=== PATIENT | female | born 1985 | race Caucasian/White ===

== ENCOUNTER 2019-02-02 12:32 | Inpatient (IN) | payer MEDICAID ==
[2019-02-02] MEDS ORDERED: STADOL IV PRN (12:38)
[2019-02-02] MEDS ORDERED: ZOFRAN IV PRN (12:38)
[2019-02-02] MEDS ORDERED: BRETHINE IVP PRN (12:38)
[2019-02-02] MEDS ORDERED: MINERAL OIL PO PRN (12:38)
[2019-02-02] MEDS ORDERED: SUBLIMAZE IV PRN (12:38)
[2019-02-02] MEDS ORDERED: XYLOCAINE 2% INFILTRATI ONE (12:38)
[2019-02-02] MEDS ORDERED: BRETHINE SUB-Q PRN (12:38)
[2019-02-02] MEDS ORDERED: LACTATED RINGERS 1,000 ML IV SCH (13:00)
[2019-02-02] MEDS ORDERED: PITOCin/NS 20 UNIT/1000ML DRIP 20 UNITS/1,000 ML BAG IV SCH (13:00)
[2019-02-02] MEDS ORDERED: PITOCin/NS 30 UNIT/500ML 30 UNITS/500 ML BAG IV SCH ×2 (13:00→14:00)
--- NOTE | 2019-02-02 13:10 | History and Physical Report ---
History of Present Illness Date of examination: 02/02/19 (sent from office in active labor) Date of admission: 02/02/19 12:32 History of present illness: EDC Confirmation: 02/01/2019 Gestational Age: 14 6/7 weeks Past History : 5 Term Births: 3 Premature Births: 0 Living Children: 3 Para: 3 Mult. Births: 0 Prev : 0 Aborta: 1 Elect. Ab: 0 Spont. Ab: 1 Ectopics: 0 # 1 Delivery date: 07/13/2004 Weeks Gestation: 40 labor: no Delivery type: Hours of labor: 12 Anesthesia type: epidural Delivery location: [facility] Infant Sex: Male weight: 7-? Name: Francisco # 2 Delivery date: 02/02/2009 Weeks Gestation: 40 labor: no Delivery type: Hours of labor: 7 Anesthesia type: epidural Delivery location: [facility] Sex: Male weight: 8-0 Name: Low # 3 Delivery date: 2013 Weeks Gestation: 8 Delivery type: SAB Comments: No D&C # 4 Delivery date: 12/27/2015 Weeks Gestation: 38 labor: no Delivery type: Hours of labor: 10 Delivery location: [facility] Infant Sex: Female weight: 6-? 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 of genital herpes: no Genetic History Congenital Heart Defect: Mom: no Dad: no Quang Disease: Mom: no Dad: no Thalassemia Mom: no Dad: no Neural Tube Defect Mom: no Dad: no Down's Syndrome Mom: no Dad: no Marv-Sachs Mom: no Dad: no Sickle Cell Disease/Trait Mom: no Dad: no Hemophilia Mom: no Dad: no Muscular Dystrophy Mom: no Dad: no Cystic Fibrosis Mom: no Dad: no Tift Chorea Mom: no Dad: no Mental Retardation Mom: no Dad: no Fragile X Mom: no Dad: no Other Genetic/Chromosomal Disorder Mom: no Dad: no Child w/other defect Mom: no Dad: no Current Allergies (reviewed today): No known allergies Past History - Obstetrical History Expected Date of Delivery: 02/01/19 Actual Gestation: 40 Week(s) 1 Day(s) : 5 Para: 3 Hx # Term Pregnancies: 3 Number of Pregnancies: 0 Spontaneous Abortions: 1 Induced : 0 Number of Living Children: 3 Medications and Allergies Allergies Allergy/AdvReac Type Severity Reaction Status Date / Time No Known Allergies Allergy Unverified 01/16/19 10:29 Active Meds: Active Medications Butorphanol Tartrate (Stadol) 2 mg IV Q2H PRN PRN Reason: Pain , Severe (7-10) Ephedrine Sulfate (Ephedrine Sulfate) 10 mg IV Q2M PRN PRN Reason: Hypotension Fentanyl (Sublimaze) 100 mcg IV Q2H PRN PRN Reason: Labor Pain Lactated Ringer's (Lactated Ringers) 1,000 mls @ 125 mls/hr IV DIRECT HERNANDO Oxytocin/Sodium Chloride (Pitocin/Ns 20 Unit/1000ml Drip) 20 units in 1,000 mls @ 125 mls/hr IV DIRECT HERNANDO Oxytocin/Sodium Chloride (Pitocin/Ns 30 Unit/500ml) 30 units in 500 mls @ 4 mls/hr IV Q30MIN HERNANDO; Protocol Mineral Oil (Mineral Oil) 30 ml PO QHS PRN PRN Reason: Constipation Ondansetron HCl (Zofran) 4 mg IV Q8H PRN PRN Reason: Nausea And Vomiting Terbutaline Sulfate (Brethine) 0.25 mg SUB-Q ONCE PRN PRN Reason: Hyperstimulation/Hypertonicity Terbutaline Sulfate (Brethine) 0.25 mg IVP ONCE PRN PRN Reason: Hyperstimulation/Hypertonicity - Vital Signs Vital signs: Vital Signs Pulse BP 100 H 124/66 02/02/19 12:56 02/02/19 12:56 Temp Pulse Resp BP Pulse Ox 100 H 124/66 02/02/19 12:56 02/02/19 12:56 - Physical Exam Breasts: Positive: deferred Cardiovascular: Regular rate, Normal S1, Normal S2 Lungs: Positive: Clear to auscultation, Normal air movement Abdomen: Positive: normal appearance, soft, normal bowel sounds. Negative: distention, tenderness Genitourinary (Female): Positive: normal external genitalia, normal perenium Vulva: both: normal Vagina: Positive: normal moisture. Negative: discharge Cervix: Negative: lesion, discharge Uterus: Positive: normal size, normal contour Adnexa: both: normal Anus/Rectum: Positive: normal perianal skin, heme negative. Negative: rectal mass, hemorrhoids Extremities: Positive: edema Deep Tendon Reflex Grade: Normal +2 - Obstetrical FHR: category 1 Uterine Contraction Monitor Mode: External Cervical Dilatation: 6 (bloody show; leaking fluid) Cervical Effacement Percentage: 70 station: -1 Uterine Contraction Pattern: Regular Uterine Tone Measurement Phase: Resting Uterine Contraction Intensity: Mild Results Result Diagrams: 02/02/19 13:27 All other labs normal. GBS NEGATIVE HBsAg Screen Negative Negative *1 RPR Non Reactive Non Reactive *2 Rubella Antibodies, IgG 2.51 index Immune >0.99 *3 Non-immune <0.90 Equivocal 0.90 - 0.99 Immune >0.99 ABO Grouping A *4 Rh Factor Positive *5 Please note: Prior records for this patient's ABO / Rh type are not available for additional verification. Antibody Screen Negative Negative *6 WBC 9.7 x10E3/uL 3.4-10.8 *7 RBC 4.12 x10E6/uL 3.77-5.28 *8 Hemoglobin 12.5 g/dL 11.1-15.9 *9 Hematocrit 37.7 % 34.0-46.6 *10 MCV 92 fL 79-97 *11 MCH 30.3 pg 26.6-33.0 *12 MCHC 33.2 g/dL 31.5-35.7 *13 RDW 14.5 % 12.3-15.4 *14 Platelets 221 x10E3/uL 150-379 *15 Neutrophils 69 % Not Estab. *16 Lymphs 26 % Not Estab. *17 Monocytes 5 % Not Estab. *18 Eos 0 % Not Estab. *19 Basos 0 % Not Estab. *20 ! Immature Cells <No Reported Value> *21 Neutrophils (Absolute) 6.7 x10E3/uL 1.4-7.0 *22 Lymphs (Absolute) 2.5 x10E3/uL 0.7-3.1 *23 Monocytes(Absolute) 0.5 x10E3/uL 0.1-0.9 *24 Eos (Absolute) 0.0 x10E3/uL 0.0-0.4 *25 Baso (Absolute) 0.0 x10E3/uL 0.0-0.2 *26 ! Immature Granulocytes 0 % Not Estab. *27 ! Immature Grans (Abs) 0.0 x10E3/uL 0.0-0.1 *28 ! NRBC <No Reported Value> *29 Hematology Comments: <No Reported Value> *30 Tests: (2) AFP Tetra (267015) ! Results Report *31 ! Test Results: *Screen Negative* *32 ! Tests: (3) Cystic Fibrosis Profile (291890) ! CF, Screen Comment: *55 RESULTS: Negative for 32 mutations analyzed Tests: (4) HB Solu + Rflx [facility] ([id number]) Hemoglobin (Hgb) Solubility Negative Negative *57 Tests: (5) Panel 648105 ([id number]) HIV Screen 4th Generation wRfx Non Reactive Non Reactive *58 Tests: (6) HCV Ab w/Rflx to Verification ([id number]) ! HCV Ab <0.1 s/co ratio 0.0-0.9 *59 Tests: (7) Comment: ([id number]) ! Comment: SPRCS *60 Non reactive HCV antibody screen is consistent with no HCV infection, unless recent infection is suspected or other evidence exists to indicate HCV infection. Tests: (8) Urine Culture, Routine ([id number]) Urine Culture, Routine Final report *61 Tests: (9) Result ([id number]) ! Result 1 No growth *62 Assessment and Plan 33yo @ 40 weeks sent from office in active labor Delay in arrival due to arranging children's tutor nursery. SVE unchged on arrival. GBS negative All orders in EMR
[2019-02-02 13:33] LABS: Hematocrit 37.2 % (30.3-42.9); Hemoglobin 12.6 gm/dl (10.1-14.3); Mean Corpuscular HGB Conc 34 % (30-34); Mean Corpuscular Volume 91 fl (79-97); Platelet Count 254 K/mm3 (140-440); Red Blood Count 4.09 M/mm3 (3.65-5.03)
--- NOTE | 2019-02-02 15:40 | Event Note ---
Date: 02/02/19 (called to come for delivery) SVE 6-7 Pt instructed to stop pushing Will get epidural placed Re-eval after
[2019-02-02] MEDS ORDERED: LANSINOH TP PRN (16:15)
[2019-02-02] MEDS ORDERED: BENADRYL PO PRN (16:15)
[2019-02-02] MEDS ORDERED: DULCOLAX PR PRN (16:15)
[2019-02-02] MEDS ORDERED: PHENERGAN PO PRN (16:15)
[2019-02-02] MEDS ORDERED: MILK OF MAGNESIA PO PRN (16:15)
[2019-02-02] MEDS ORDERED: TYLENOL PO PRN (16:15)
[2019-02-02] MEDS ORDERED: TUCKS PAD TP PRN (16:15)
--- NOTE | 2019-02-02 16:23 | Procedure Note ---
OB Delivery Note - Delivery Date of Delivery: 02/02/19 Commodity Merchant: OLE BUNDY Estimated blood loss: 300cc - Vaginal Delivery presentation: vertex Delivery position: OA Intrapartum events: meconium Delivery induction: none Delivery augmentation: pitocin Delivery monitor: external FHT, external uterine Route of delivery: Delivery placenta: spontaneous Delivery cord: nuchal cord, 3 umbilical vessels Episiotomy: none Delivery laceration: none Anesthesia: none Delivery comments: called urgently to LDR Baby delivered just before my arrival. Cord blood obtained Placenta and membrane delivered complete and intact, 3 vessel cord. Pit IVFs 8/9 Wgt 7-7, EBL 300 Count sponges 10. Mom and baby remain LDR stable - A at 1 minute: 8 at 5 minutes: 9 Gender: Male (wgt 7-7)
[2019-02-02] MEDS ORDERED: SODIUM CHLORIDE FLUSH SYRINGE 10 ML IV SCH (17:00)
[2019-02-02] MEDS: IBUPROFEN PO SCH ×2 (18:00→23:34)
[2019-02-03] MEDS: IBUPROFEN PO SCH ×3 (05:33→17:54)
[2019-02-03] MEDS ORDERED: BOOSTRIX IM ONE (06:00)
--- NOTE | 2019-02-03 07:41 | Discharge Summary ---
Providers - Providers Date of Admission: 02/02/19 12:32 Date of discharge: 02/03/19 (Pt desires d/c home today) Attending physician: BARI DEE Primary care physician: MERON CUEVAS Hospitalization Reason for admission: Labor and delivery Condition: Good Pertinent studies: post delivery H&H 11.0/32.4 Procedures: Hospital course: uncomplicated and course Disposition: DC-01 TO HOME OR SELFCARE - Discharge Diagnoses (1) Normal spontaneous vaginal delivery Status: Acute Core Measure Documentation - Palliative Care Palliative Care/ Comfort Measures: Not Applicable - Core Measures Any of the following diagnoses?: none Exam - Constitutional Vitals: Temp Pulse Resp BP Pulse Ox 98.6 F 81 16 95/57 97 02/03/19 01:26 02/03/19 01:26 02/03/19 06:18 02/03/19 01:26 02/03/19 01:26 General appearance: Present: no acute distress, well-nourished - EENT Eyes: Present: PERRL ENT: hearing intact, clear oral mucosa - Neck Neck: Present: supple, normal ROM - Respiratory Respiratory effort: normal Respiratory: bilateral: CTA - Cardiovascular Heart Sounds: Present: S1 & S2. Absent: rub, click - Extremities Extremities: pulses symmetrical, No edema Peripheral Pulses: within normal limits - Abdominal General gastrointestinal: Present: soft, non-tender, non-distended, normal bowel sounds Female genitourinary: Present: normal - Integumentary Integumentary: Present: clear, warm, dry - Musculoskeletal Musculoskeletal: gait normal, strength equal bilaterally - Psychiatric Psychiatric: appropriate mood/affect, intact judgment & insight - Neurologic Neurologic: CNII-XII intact, moves all extremities - Additional findings Additional findings: Lochia scant, fundus firm, Plan Activity: no restrictions Diet: regular Follow up with: MERON CUEVAS MD [Primary Care Provider] - 7 Days (Congratulations! Please call [phone] to schedule your son's circumcision in 1 week and your visit in 4 weeks. Bring EMLA cream to your son's visit and await further teaching. Call for any questions or concerns.) Prescriptions: Lidocain2.5%/Prilocai2.5% [Emla] 5 gm TP ONCE PRN #1 tube PRN Reason: Pain RX: Ibuprofen [Motrin 800 MG tab] 800 mg PO Q8HR PRN #30 tablet PRN Reason: Pain
[2019-02-03 08:35] LABS: Hematocrit 32.4 % (30.3-42.9)
[2019-02-03 16:39] VITALS: BP 109/64
[2019-02-03] MEDS ORDERED: M-M-R II VACCINE SUB-Q ONE (17:00)
== END 2019-02-03 20:30 | disposition home or self-care (01) | DRG 775 ==
LOC: LD 12:32 → OB 19:22
PROVIDERS: ADMIT Obstetrics & Gynecology; ATTEND Obstetrics & Gynecology
PROC: 10E0XZZ Delivery of Products of Conception, External Approach (ICD-10-PCS; principal; 2019-02-02)
DX: O77.0 Labor and delivery complicated by meconium in amniotic fluid (principal); O69.81X0 Labor and delivery complicated by cord around neck, without compression, not applicable or unspecified; Z3A.40 40 weeks gestation of pregnancy; Z37.0 Single live birth
CPT/HCPCS: 36415; 85014; 85018; 85027; 86592; 86850; 86900; 86901; G0378; A6250; J2590; J7120